=== PATIENT | female | born 1990 | race Caucasian/White ===

== ENCOUNTER 2016-09-04 19:10 | Emergency (ER) | payer OTHER ==
[~2016-09-04] VITALS: Ht 170.2 cm; Wt 78.5 kg
[2016-09-04 19:42] VITALS: BP 105/65
--- NOTE | 2016-09-04 20:52 | NUR ---
TO ER OF1
--- NOTE | 2016-09-04 21:06 | NUR ---
Patient being evaluated by physician.
[2016-09-04 21:24] VITALS: BP 111/67
--- NOTE | 2016-09-04 21:24 | NUR ---
Patient discharged with v/s stable. Written and verbal after care instructions given and explained. Patient alert, oriented and verbalized understanding of instructions. Ambulatory with steady gait. All questions addressed prior to discharge. ID band removed. Patient advised to follow up with PMD. Rx of Cortisporin otic gtts given. Patient educated on indication of medication including possible reaction and side effects. Opportunity to ask questions provided and answered.
== END 2016-09-04 21:24 | disposition home or self-care (01) ==
LOC: MED 19:10
DX: H92.02 Otalgia, left ear (principal)
CPT/HCPCS: 99283

== ENCOUNTER 2018-02-05 07:51 | Emergency (ER) | payer OTHER ==
[~2018-02-05] VITALS: Ht 170.2 cm; Wt 81.6 kg
[2018-02-05 07:55] VITALS: BP 131/72
--- NOTE | 2018-02-05 07:59 | NUR ---
PT AMBULATES TO BED 2
--- NOTE | 2018-02-05 08:04 | NUR ---
28 YO F BIB FAMILY W/ C/O N/V/D , FEVER & EPIGASTRIC PAIN X 4 DAYS. MED HX: GALL BLADDER REMOVED. SKIN IS PINK/WARM/DRY; AAOX4 WITH EVEN AND STEADY GAIT; LUNGS CLEAR BL; HR EVEN AND REGULAR, ABD SOFT, AND NON-TENDER. BOWEL SOUNDS ACTIVE X 4 QUADRANTS; PT DENIES ANY FEVER, CP, SOB, OR COUGH AT THIS TIME; PATIENT STATES PAIN OF 8/10 AT THIS TIME; VSS; PATIENT POSITIONED FOR COMFORT; HOB ELEVATED; BEDRAILS UP X2; BED DOWN. ER MD MADE AWARE OF PT STATUS.
--- NOTE | 2018-02-05 08:09 | NUR ---
Patient being evaluated by DR FIERRO at bedside.
[2018-02-05] MEDS ORDERED: FAMOTIDINE 20 MG/2 ML VIAL IVP ONE (08:15)
[2018-02-05] MEDS ORDERED: ONDANSETRON 4 MG/2 ML VIAL IVP ONE (08:15)
[2018-02-05] MEDS ORDERED: NACL 0.9% 1,000 ML IV ONE (08:15)
[2018-02-05] MEDS ORDERED: KETOROLAC 30 MG/ML VIAL IVP ONE (08:15)
--- NOTE | 2018-02-05 08:45 | NUR ---
DR SILVA EVALUATING AT BEDSIDE
[2018-02-05 08:50] LABS: BASOPHILS % (AUTO) 0.4 % (0.0-2.0); EOSINOPHILS % (AUTO) 0.6 % (0.0-4.0); HEMOGLOBIN 13.9 g/dL (12.0-16.0); LYMPHOCYTES % (AUTO) 12.1 % (20.5-51.1); MEAN CORPUSCULAR HEMOGLOBIN 28 pg (27-31); MEAN CORPUSCULAR HGB CONC 33 g/dL (33-37); MEAN CORPUSCULAR VOLUME 84.7 fL (80-94); MONOCYTES % (AUTO) 12.3 % (1.7-9.3); NEUTROPHILS % (AUTO) 74.6 % (42.2-75.2); PLATELET COUNT (AUTO) 186 K/uL (140-450); RED BLOOD CELL COUNT(AUTO) 4.96 MIL/uL (4.20-5.40); WHITE BLOOD COUNT (AUTO) 9.2 K/uL (4.8-10.8)
[2018-02-05 08:51] LABS: EOSINOPHILS # (AUTO) 0.1 K/uL (0-0.4); LYMPHOCYTES # (AUTO) 1.1 K/uL (2.5-16.5); MONOCYTES # (AUTO) 1.1 K/uL (0.8-1.0); NEUTROPHILS # (AUTO) 6.8 K/uL (1.8-7.7)
[2018-02-05 09:03] LABS: ANION GAP 6.7 (8-16); CARBON DIOXIDE 29.9 mmol/L (21-32); POTASSIUM 3.6 mmol/L (3.5-5.1)
[2018-02-05 09:04] LABS: CREATININE 0.7 mg/dL (0.6-1.3)
[2018-02-05 09:05] LABS: TOTAL BILIRUBIN 0.4 mg/dL (0.0-1.0)
[2018-02-05 09:06] LABS: ALBUMIN 3.5 g/dL (3.4-5.0)
--- NOTE | 2018-02-05 09:28 | NUR ---
DIARRHEA X 1 EPISODE AT THIS TIME. UABLE TO URENATE AT THIS TIME.
[2018-02-05 09:53] VITALS: BP 118/67
--- NOTE | 2018-02-05 09:53 | NUR ---
Patient discharged with v/s stable. Written and verbal after care instructions given and explained. Patient alert, oriented and verbalized understanding of instructions. Ambulatory with steady gait. All questions addressed prior to discharge. ID band removed. Patient advised to follow up with PMD. Rx of TRAMADOL & ZOFRAN given. Patient educated on indication of medication including possible reaction and side effects. Opportunity to ask questions provided and answered.
== END 2018-02-05 09:53 | disposition home or self-care (01) ==
LOC: MED 07:51
DX: R10.13 Epigastric pain (principal); R11.2 Nausea with vomiting, unspecified; R19.7 Diarrhea, unspecified
CPT/HCPCS: 36415; 76705; 80053; 82150; 83690; 85025; 85610; 85730; 96361; 96374; 96375; 99285; J1885; J2405; J3490; J7030; Q0092

== ENCOUNTER 2018-04-05 12:07 | Emergency (ER) | payer OTHER ==
[~2018-04-05] VITALS: Ht 167.6 cm; Wt 86.6 kg
[2018-04-05 12:24] VITALS: BP 121/69
--- NOTE | 2018-04-05 12:26 | NUR ---
PT. CAME INTO THE ED DUE TO N/V X THIS MORNING. PT. STATES " WE ALL ATE SOMEWHERE YESTERDAY AND THIS MORNINGS MY DAUGHTERS AND I HAVE BEEN NAUSEOUS AND VOMITING". DENIES ANY FEVER OR CHILLS. DENIES ANY ABD PAIN. ABD ROUND AND SOFT AND NON TENDER UPON PALPATION. DENIES ANY BLOOD IN EMESIS. ER MD MADE AWARE, SAFETY PRECAUTIONS IMPLEMENTED. WILL CONTINUE TO MONITOR.
--- NOTE | 2018-04-05 12:41 | NUR ---
ER MD BURROWS AT BEDSIDE
[2018-04-05] MEDS ORDERED: KETOROLAC 60 MG/2 ML VIAL IM ONE (12:45)
[2018-04-05] MEDS ORDERED: ONDANSETRON 4 MG ODT PO ONE (12:45)
[2018-04-05 13:14] VITALS: BP 125/62
--- NOTE | 2018-04-05 13:15 | NUR ---
Patient discharged with v/s stable. Written and verbal after care instructions given and explained. Patient alert, oriented and verbalized understanding of instructions. Ambulatory with steady gait. All questions addressed prior to discharge. ID band removed. Patient advised to follow up with PMD. Rx of MOTRN, ZOFRAN given. Patient educated on indication of medication including possible reaction and side effects. Opportunity to ask questions provided and answered.
== END 2018-04-05 13:15 | disposition home or self-care (01) ==
LOC: MED 12:07
DX: R07.89 Other chest pain (principal); R06.02 Shortness of breath; R11.2 Nausea with vomiting, unspecified; Z90.49 Acquired absence of other specified parts of digestive tract
CPT/HCPCS: 96372; 99283; J1885; Q0162; 81002; 81025

== ENCOUNTER 2018-06-15 19:49 | Emergency (ER) | payer OTHER ==
[~2018-06-15] VITALS: Ht 170.2 cm; Wt 83.0 kg
[2018-06-15 19:53] VITALS: BP 120/74
--- NOTE | 2018-06-15 19:56 | NUR ---
TO LOBBY A/W BED, WENDY VALENCIA NOTED
--- NOTE | 2018-06-15 21:22 | NUR ---
PT TO ER BED 5
--- NOTE | 2018-06-15 21:30 | NUR ---
Patient being evaluated by PA at bedside.
[2018-06-15 21:45] VITALS: BP 116/63
== END 2018-06-15 21:45 | disposition home or self-care (01) ==
LOC: MED 19:49
DX: T81.32XA Disruption of internal operation (surgical) wound, not elsewhere classified, initial encounter (principal); Y76.8 Miscellaneous obstetric and gynecological devices associated with adverse incidents, not elsewhere classified
CPT/HCPCS: 87070; 87075; 87186; 87205; 99283

== ENCOUNTER 2019-02-08 16:29 | Emergency (ER) | payer OTHER ==
[~2019-02-08] VITALS: Ht 170.2 cm; Wt 88.5 kg
[2019-02-08 17:00] VITALS: BP 114/66
[2019-02-08 17:15] LABS: BASOPHILS # (AUTO) 0.1 K/uL (0.00-0.22); BASOPHILS % (AUTO) 0.9 % (0.0-2.0); EOSINOPHILS # (AUTO) 0.2 K/uL (0-0.4); EOSINOPHILS % (AUTO) 2.5 % (0.0-4.0); HEMATOCRIT 37.6 % (36-48); HEMOGLOBIN 11.9 g/dL (12.0-16.0); LYMPHOCYTES # (AUTO) 2.2 K/uL (2.5-16.5); LYMPHOCYTES % (AUTO) 28.2 % (20.5-51.1); MEAN CORPUSCULAR HEMOGLOBIN 25 pg (27-31); MEAN CORPUSCULAR HGB CONC 32 g/dL (33-37); MONOCYTES # (AUTO) 0.5 K/uL (0.8-1.0); MONOCYTES % (AUTO) 6.7 % (1.7-9.3); NEUTROPHILS # (AUTO) 4.8 K/uL (1.8-7.7); NEUTROPHILS % (AUTO) 61.7 % (42.2-75.2); PLATELET COUNT (AUTO) 271 K/uL (140-450); RED BLOOD CELL COUNT(AUTO) 4.77 MIL/uL (4.20-5.40); WHITE BLOOD COUNT (AUTO) 7.8 K/uL (4.8-10.8)
[2019-02-08 17:26] LABS: ANION GAP 14.3 (8-16); CREATININE 0.6 mg/dL (0.6-1.3); POTASSIUM 3.3 mmol/L (3.5-5.1)
--- NOTE | 2019-02-08 17:57 | NUR ---
PT TO ER BED 11
--- NOTE | 2019-02-08 18:14 | NUR ---
29F A0 C/O 5/10 BILAT LOWER ABD DISCOMFORT X 3 HOURS. STATES IT IS NOT EXACTLY PAIN. THE CRAMPING SENSATION IS INTERMITTENT AND UNPROVOKED. PT STATES SHE HAD A TUBAL REVERSAL DONE 7 MONTHS AGO AND HER OBGYN REFFERED HER TO THE ER TO R/O ECT PREG. DENIES VAG BLEEDING. TERE 10/13/19 HX: NONE RX: NONE
[2019-02-08 19:04] LABS: APPEARANCE,URINE CLEAR (CLEAR); COLOR,URINE STRAW (YELLOW)
[2019-02-08 19:06] LABS: BILIRUBIN,URINE NEGATIVE (NEGATIVE); BLOOD, URINE NEGATIVE (NEGATIVE); LEUKOCYTE ESTERASE ,URINE NEGATIVE (NEGATIVE); NITRITE, URINE NEGATIVE (NEGATIVE); UGLUCOSE NEGATIVE (NEGATIVE)
--- NOTE | 2019-02-08 19:22 | NUR ---
DPatient discharged with v/s stable. Written and verbal after care instructions given and explained. Patient verbalized understanding. Ambulatory with steady gait. All questions addressed prior to discharge. Advised to follow up with PMD/ OB.
[2019-02-08 19:23] VITALS: BP 113/62
== END 2019-02-08 19:22 | disposition home or self-care (01) ==
LOC: MED 16:29
DX: O21.8 Other vomiting complicating pregnancy (principal); O26.891 Other specified pregnancy related conditions, first trimester; R10.84 Generalized abdominal pain; Z3A.01 Less than 8 weeks gestation of pregnancy; Z98.890 Other specified postprocedural states
CPT/HCPCS: 36415; 76801; 80048; 81003; 84702; 85025; 86900; 86901; 99284; Q0092

== ENCOUNTER 2019-02-12 09:11 | Emergency (ER) | payer OTHER ==
[~2019-02-12] VITALS: Ht 170.2 cm; Wt 88.5 kg
[2019-02-12 09:20] VITALS: BP 131/68
[2019-02-12 11:03] VITALS: BP 118/73
== END 2019-02-12 11:03 | disposition home or self-care (01) ==
LOC: MED 09:11
DX: O03.9 Complete or unspecified spontaneous abortion without complication (principal)
CPT/HCPCS: 36415; 84702; 99283

== ENCOUNTER 2019-06-01 14:42 | Emergency (ER) | payer OTHER ==
[~2019-06-01] VITALS: Ht 167.6 cm; Wt 87.5 kg
[2019-06-01 14:54] VITALS: BP 115/69
--- NOTE | 2019-06-01 15:00 | NUR ---
PT TO BED 2 WITH SEADY GAIT
--- NOTE | 2019-06-01 15:09 | NUR ---
29 Y/O F C/O COUGHING, DIARRHEA, BARTON 09/11 X 3 DAYS. PT OXYGEN LEVEL 98% ROOM AIR, BOWEL SOUNDS ACTIVE ALL FOUR QUADRANTS. PT DENIES FEVER, TOOK OVER THE COUNTER PAIN MEDICATION AT HOME FOR BARTON. DAUGHTER AT BEDSIDE. PT POSITIONED HIGH FOWLERS, BED LOWERED. NKA
--- NOTE | 2019-06-01 16:48 | NUR ---
FLU SWAB PERFORMED, SENT TO LAB.
--- NOTE | 2019-06-01 17:38 | NUR ---
PT RESTING COMFORTABLY, CHILDREN AT BEDSIDE. INFORMED WAITING FOR FLU RESULTS TO RETURN.
--- NOTE | 2019-06-01 18:07 | NUR ---
FLU B POSITIVE, NOTIFIED.
[2019-06-01 18:34] VITALS: BP 120/70
--- NOTE | 2019-06-01 18:34 | NUR ---
Patient discharged with v/s stable. Written and verbal after care instructions given and explained. Patient alert, oriented and verbalized understanding of instructions. Ambulatory with steady gait. All questions addressed prior to discharge. ID band removed. Patient advised to follow up with PMD. Rx of motrin, promethazine, and tamiflu given. Patient educated on indication of medication including possible reaction and side effects. Opportunity to ask questions provided and answered.
== END 2019-06-01 18:34 | disposition home or self-care (01) ==
LOC: MED 14:42
DX: J11.1 Influenza due to unidentified influenza virus with other respiratory manifestations (principal)
CPT/HCPCS: 87804; 99283